=== PATIENT | male | born 1940 | race Two or more races ===

== ENCOUNTER 2022-06-02 02:38 | Inpatient (IN) | payer OTHER ==
[~2022-06-02] VITALS: Ht 170.2 cm; Wt 80.2 kg
[2022-06-02 03:16] LABS: BASOPHILS % (AUTO) 0.5 % (0.0-5.0); EOSINOPHILS % (AUTO) 1.2 % (0.0-8.0); HEMATOCRIT 39.2 % (42-54); LYMPHOCYTES % (AUTO) 6.4 % (21.0-51.0); MEAN CORPUSCULAR HEMOGLOBIN 31.1 pg (27.0-33.0); MEAN CORPUSCULAR HGB CONC 34.9 g/dL (32.0-36.0); MEAN CORPUSCULAR VOLUME 88.9 fL (79-99); MONOCYTES % (AUTO) 2.9 % (3.0-13.0); NEUTROPHILS % (AUTO) 88.5 % (40.0-77.0); PLATELET COUNT (AUTO) 309 K/uL (130-400); RED BLOOD CELL COUNT(AUTO) 4.41 MIL/uL (4.50-6.20); RED CELL DISTRIBUTION WIDTH 12.2 % (11.0-15.5); WHITE BLOOD COUNT (AUTO) 18.3 K/uL (4.8-10.8)
[2022-06-02 03:17] LABS: APPEARANCE,URINE CLEAR (CLEAR); BILIRUBIN,URINE NEGATIVE (NEGATIVE); COLOR,URINE YELLOW (YELLOW); GLUCOSE, URINE (UA) >=1000 mg/dL (NEGATIVE); KETONES,URINE 5 mg/dL (NEGATIVE); LEUKOCYTE ESTERASE ,URINE NEGATIVE (NEGATIVE); NITRATE,URINE NEGATIVE (NEGATIVE); OCCULT BLOOD,URINE NEGATIVE (NEGATIVE); PH,URINE 7.5 (5.0-8.0); PROTEIN,URINE NEGATIVE (NEGATIVE); UROBILINOGEN,URINE 0.2 mg/dL (0.2-1.0)
[2022-06-02 03:23] LABS: BACTERIA,URINE None Seen /HPF (None Seen); MUCUS,URINE Few LPF (None Seen); RBC,URINE None Seen /HPF (0-1); SQUAMOUS EPITHELIAL CELL,UR Rare /HPF (0-2); WBC,URINE None Seen /HPF (0-1)
[2022-06-02 03:24] LABS: CREATININE 1.1 mg/dL (0.5-1.5); POTASSIUM 3.5 mmol/L (3.5-5.1)
[2022-06-02 03:31] LABS: ALBUMIN 4.7 g/dL (3.5-5.0); TOTAL PROTEIN, SERUM 9.4 g/dL (6.0-8.3)
[2022-06-02] MEDS ORDERED: 0.9%NACL 1000ML 1,000 ML IV ONE (04:00)
[2022-06-02] MEDS ORDERED: KETOROLAC 15MG/ML VIAL (15MG/ML) IV ONE (04:00)
[2022-06-02] MEDS ORDERED: ONDANSETRON 4MG INJ IVP ONE (04:00)
[2022-06-02] MEDS ORDERED: IOHEXOL 350 MG/ML 100ML INFUS..BTL IV ONE (05:34)
[2022-06-02] MEDS ORDERED: ZOSYN 3.375GM +NS 50ML IV SCH (06:30)
[2022-06-02] MEDS ORDERED: MORPHINE 4 MG SYG IVP PRN (07:00)
[2022-06-02] MEDS ORDERED: MORPHINE 2 MG SYG IVP PRN (07:00)
[2022-06-02] MEDS ORDERED: ACETAMINOPHEN 650 MG SUPPOSITORY RC PRN ×2 (07:00)
[2022-06-02] MEDS ORDERED: ONDANSETRON 4MG INJ IVP PRN (07:00)
[2022-06-02] MEDS: ZOSYN 3.375GM +NS 50ML IV SCH ×3 (07:09→21:34)
[2022-06-02] MEDS ORDERED: GLUCAGON 1MG KIT 1 MG ML IM PRN (08:00)
[2022-06-02] MEDS ORDERED: DEXTROSE 50%-WATER 50 ML DISP.SYRIN IV PRN (08:00)
[2022-06-02 08:37] LABS: HEMOGLOBIN A1C 7.3 % (4.0-6.0)
[2022-06-02 09:40] VITALS: BP 145/70
[2022-06-02] MEDS ORDERED: METF-446 PO (11:24)
[2022-06-02] MEDS ORDERED: AMLO-258 PO (11:24)
[2022-06-02] MEDS: INSULIN HUMULIN R 100 UNIT/ML 3ML SQ SCH ×3 (11:30→21:35)
[2022-06-02 12:00] VITALS: BP 124/64
[2022-06-02 16:00] VITALS: BP 140/73
[2022-06-02] MEDS ORDERED: MAGNESIUM CITRATE 296 ML SOLUTION PO SCH (19:00)
[2022-06-02 20:00] VITALS: BP 132/56
[2022-06-03] VITALS (10 sets, daily range): BP systolic 112–154; BP diastolic 53–68
[2022-06-03] MEDS: ZOSYN 3.375GM +NS 50ML IV SCH ×3 (05:21→23:00)
[2022-06-03 05:34] LABS: BASOPHILS % (AUTO) 0.3 % (0.0-5.0); HEMATOCRIT 35.1 % (42-54); LYMPHOCYTES % (AUTO) 4.7 % (21.0-51.0); MEAN CORPUSCULAR HEMOGLOBIN 30.8 pg (27.0-33.0); MEAN CORPUSCULAR HGB CONC 34.5 g/dL (32.0-36.0); MEAN CORPUSCULAR VOLUME 89.3 fL (79-99); MONOCYTES % (AUTO) 5.9 % (3.0-13.0); NEUTROPHILS % (AUTO) 88.4 % (40.0-77.0); PLATELET COUNT (AUTO) 238 K/uL (130-400); RED BLOOD CELL COUNT(AUTO) 3.93 MIL/uL (4.50-6.20); RED CELL DISTRIBUTION WIDTH 12.4 % (11.0-15.5); WHITE BLOOD COUNT (AUTO) 23.6 K/uL (4.8-10.8)
[2022-06-03] MEDS: INSULIN HUMULIN R 100 UNIT/ML 3ML SQ SCH ×3 (05:40→21:00)
[2022-06-03 05:43] LABS: CREATININE 1.3 mg/dL (0.5-1.5); POTASSIUM 3.3 mmol/L (3.5-5.1)
[2022-06-03 05:44] LABS: INR 1.17 (0.85-1.15); PROTHROMBIN TIME 12.6 SEC (9.6-11.6)
[2022-06-03 05:45] LABS: PARTIAL THROMBOPLASTIN TIME 31.9 SEC (26.3-35.5)
[2022-06-03] MEDS ORDERED: POTASSIUM CHLORIDE 20MEQ/100ML 100 ML IV ONE (07:39)
[2022-06-03] MEDS ORDERED: LIDOCAINE HCL-MPF 1% 2ML VIAL ONE (07:40)
[2022-06-03] MEDS ORDERED: LIDOCAINE HCL-MPF 1% 2ML VIAL IV PRN (08:00)
[2022-06-03] MEDS ORDERED: KCL 20 MEQ ERTAB PO PRN (08:00)
[2022-06-03] MEDS ORDERED: POTASSIUM CHLORIDE 10% ELIXIR 20 MEQ/15 ML UDCUP PO PRN (08:00)
[2022-06-03] MEDS ORDERED: AMLODIPINE 5 MG TAB PO SCH (08:00)
[2022-06-03] MEDS ORDERED: POTASSIUM CHLORIDE 20MEQ/100ML 100 ML IV PRN (08:00)
[2022-06-03] MEDS: METRONIDAZOLE 500MG/100ML BAG 100 ML IVPB SCH ×2 (15:20→22:00)
[2022-06-03] MEDS ORDERED: MIDAZOLAM HCL 1 MG/ML 2ML VIAL ONE (21:16)
[2022-06-03] MEDS ORDERED: FENTANYL CITRATE PF 50 MCG/1 ML 2ML VIAL ONE (21:16)
[2022-06-03] MEDS ORDERED: PROPOFOL 10 MG/ML 20ML VIAL IV ONE (21:16)
[2022-06-03] MEDS ORDERED: SUCCINYLCHOLINE 200MG/10ML SYR ONE (21:16)
[2022-06-03] MEDS ORDERED: ROCURONIUM 10MG/1ML SYR 10 MG/ML ML ONE ×2 (21:16→21:53)
[2022-06-03] MEDS ORDERED: KETOROLAC 30MG VIAL (30MG/ML) ONE (21:30)
[2022-06-03] MEDS ORDERED: HYDROMORPHONE 1 MG INJ ONE (21:42)
[2022-06-03] MEDS ORDERED: BUPIVACAINE/EPI/PF 0.25% 30ML VIAL IJ ONE (22:18)
[2022-06-03] MEDS ORDERED: LIDOCAINE HCL 1% 20 ML VIAL ONE (22:18)
[2022-06-03] MEDS ORDERED: GLYCOPYRROLATE 1 MG/5 ML SYRINGE ONE (23:28)
[2022-06-03] MEDS ORDERED: NEOSTIGMINE 5MG/5ML SYR IV ONE (23:28)
[2022-06-04] VITALS (24 sets, daily range): BP systolic 103–154; BP diastolic 42–78
[2022-06-04] MEDS ORDERED: IPRATROPIUM/ALBUTEROL SULFATE 3 ML SOLUTION IH ONE (00:30)
[2022-06-04] MEDS: 0.9%NACL 1000ML 1,000 ML IV SCH ×3 (01:48→21:15)
[2022-06-04] MEDS ORDERED: HYDROMORPHONE 1 MG INJ IVP PRN ×2 (02:00)
[2022-06-04] MEDS ORDERED: OXYCODONE/ACETAMIN 5/325MG TAB PO PRN ×2 (02:00)
[2022-06-04] MEDS: METRONIDAZOLE 500MG/100ML BAG 100 ML IVPB SCH ×3 (05:05→19:42)
[2022-06-04 05:24] LABS: BASOPHILS % (AUTO) 0.2 % (0.0-5.0); EOSINOPHILS % (AUTO) 9.7 % (0.0-8.0); LYMPHOCYTES % (AUTO) 1.9 % (21.0-51.0); MEAN CORPUSCULAR HEMOGLOBIN 30.8 pg (27.0-33.0); MEAN CORPUSCULAR HGB CONC 34.2 g/dL (32.0-36.0); MEAN CORPUSCULAR VOLUME 89.9 fL (79-99); MONOCYTES % (AUTO) 2.6 % (3.0-13.0); PLATELET COUNT (AUTO) 225 K/uL (130-400); RED BLOOD CELL COUNT(AUTO) 3.67 MIL/uL (4.50-6.20); RED CELL DISTRIBUTION WIDTH 12.9 % (11.0-15.5); WHITE BLOOD COUNT (AUTO) 18.1 K/uL (4.8-10.8)
[2022-06-04 05:42] LABS: ALANINE AMINOTRANSFERASE 25 U/L (12-78); ALBUMIN 2.6 g/dL (3.5-5.0); AMYLASE 22 U/L (25-115); ASPARTATE AMINOTRANSFERASE 30 U/L (10-37); CARBON DIOXIDE 25 mmol/L (21-32); CHLORIDE 98 mmol/L (101-111); CREATININE 1.4 mg/dL (0.5-1.5); GLOMERULAR FILTR. RATE CALC 52 mL/min (>60); GLUCOSE,RANDOM 279 mg/dL (70-105); SODIUM SERUM 133 mmol/L (136-145); TOTAL PROTEIN, SERUM 6.7 g/dL (6.0-8.3); UREA NITROGEN, BLOOD 21 mg/dL (7-18)
[2022-06-04 05:45] LABS: LIPASE < 50 U/L (114-286)
[2022-06-04] MEDS ORDERED: MAGNESIUM OXIDE 400 MG TABLET PO SCH (06:00)
[2022-06-04] MEDS: INSULIN HUMULIN R 100 UNIT/ML 3ML SQ SCH ×4 (06:10→20:12)
[2022-06-04] MEDS: ZOSYN 3.375GM +NS 50ML IV SCH ×3 (08:38→22:45)
[2022-06-05] VITALS (7 sets, daily range): BP systolic 116–142; BP diastolic 56–71
[2022-06-05] MEDS: ZOSYN 3.375GM +NS 50ML IV SCH ×3 (05:20→22:12)
[2022-06-05] MEDS: METRONIDAZOLE 500MG/100ML BAG 100 ML IVPB SCH (05:20)
[2022-06-05] MEDS: INSULIN GLARGINE 100 UNITS/ML 10 ML VIAL SQ SCH ×2 (05:25→21:57)
[2022-06-05] MEDS: INSULIN HUMULIN R 100 UNIT/ML 3ML SQ SCH ×4 (05:25→21:56)
[2022-06-05 06:11] LABS: HEMATOCRIT 30.9 % (42-54); MEAN CORPUSCULAR HEMOGLOBIN 30.9 pg (27.0-33.0); MEAN CORPUSCULAR VOLUME 90.9 fL (79-99); RED BLOOD CELL COUNT(AUTO) 3.4 MIL/uL (4.50-6.20); RED CELL DISTRIBUTION WIDTH 12.7 % (11.0-15.5); WHITE BLOOD COUNT (AUTO) 13.7 K/uL (4.8-10.8)
[2022-06-05 06:23] LABS: CREATININE 1.2 mg/dL (0.5-1.5); POTASSIUM 4.3 mmol/L (3.5-5.1)
[2022-06-05] MEDS ORDERED: DILTIAZEM 125 MG/25 ML INJ 125 MG in 0.9%NACL 100ML 100 ML IV PRN (08:30)
[2022-06-05] MEDS ORDERED: DILTIAZEM 25MG INJ IVP PRN (08:30)
[2022-06-05] MEDS: 0.9%NACL 1000ML 1,000 ML IV SCH ×2 (10:32→16:47)
[2022-06-05] MEDS: ENOXAPARIN SODIUM 80 MG/0.8 ML SQ SCH (10:34)
[2022-06-05] MEDS ORDERED: FUROSEMIDE 40MG VIAL IV ONE (13:00)
[2022-06-05] MEDS: BENZONATATE 100 MG CAPSULE PO PRN (14:16)
[2022-06-05] MEDS: IPRATROPIUM 0.5 MG/2.5 ML INH IH SCH ×2 (18:49→23:01)
[2022-06-05] MEDS ORDERED: LACTULOSE 20 GM/30 ML UDCUP PO PRN (21:00)
[2022-06-05] MEDS ORDERED: GUAIFENESIN-DM 200/20 MG 10 ML PO PRN (21:00)
[2022-06-05] MEDS ORDERED: DOCUSATE SODIUM 100 MG CAP PO PRN (21:00)
[2022-06-05] MEDS ORDERED: DIPHENHYDRAMINE HCL 25 MG CAPSULE PO PRN (22:00)
[2022-06-06] MEDS: BENZONATATE 100 MG CAPSULE PO PRN
[2022-06-06 00:12] VITALS: BP 148/69
[2022-06-06] MEDS: 0.9%NACL 1000ML 1,000 ML IV SCH (04:00)
[2022-06-06 04:02] VITALS: BP 145/70
[2022-06-06 04:20] LABS: HEMATOCRIT 31.3 % (42-54); MEAN CORPUSCULAR HEMOGLOBIN 30.7 pg (27.0-33.0); MEAN CORPUSCULAR HGB CONC 34.2 g/dL (32.0-36.0); MEAN CORPUSCULAR VOLUME 89.9 fL (79-99); RED BLOOD CELL COUNT(AUTO) 3.48 MIL/uL (4.50-6.20); RED CELL DISTRIBUTION WIDTH 12.6 % (11.0-15.5); WHITE BLOOD COUNT (AUTO) 10.2 K/uL (4.8-10.8)
[2022-06-06 04:44] LABS: ALBUMIN 2.5 g/dL (3.5-5.0); CREATININE 1.2 mg/dL (0.5-1.5); POTASSIUM 3.6 mmol/L (3.5-5.1); TOTAL PROTEIN, SERUM 7.1 g/dL (6.0-8.3)
[2022-06-06] MEDS: IPRATROPIUM 0.5 MG/2.5 ML INH IH SCH (06:17)
[2022-06-06] MEDS: ZOSYN 3.375GM +NS 50ML IV SCH ×2 (06:37→15:00)
[2022-06-06] MEDS: INSULIN HUMULIN R 100 UNIT/ML 3ML SQ SCH ×2 (06:39→11:00)
[2022-06-06] MEDS: INSULIN GLARGINE 100 UNITS/ML 10 ML VIAL SQ SCH (06:39)
[2022-06-06 07:10] VITALS: BP 144/72
[2022-06-06] MEDS: ENOXAPARIN SODIUM 80 MG/0.8 ML SQ SCH (08:30)
[2022-06-06] MEDS ORDERED: FUROSEMIDE 40MG VIAL IV ONE (10:00)
[2022-06-06 11:30] VITALS: BP 134/74
[2022-06-06 15:00] VITALS: BP 124/50
== END 2022-06-06 16:48 | disposition home or self-care (01) | DRG 417 ==
LOC: EDH 02:38 → INTOOBSV 06:53 → EDHIP 06:53 → OBSVTOIN 06:53 → 3AH 08:51 → 2AH 06-05 10:04
PROVIDERS: ADMIT Hospitalist; ATTEND Hospitalist
PROC: 8E0W4CZ Robotic Assisted Procedure of Trunk Region, Percutaneous Endoscopic Approach (ICD-10-PCS; 2022-06-03)
PROC: 0FT44ZZ Resection of Gallbladder, Percutaneous Endoscopic Approach (ICD-10-PCS; principal; 2022-06-03 21:14)
DX: K80.00 Calculus of gallbladder with acute cholecystitis without obstruction (principal); I50.31 Acute diastolic (congestive) heart failure; J96.01 Acute respiratory failure with hypoxia; E87.1 Hypo-osmolality and hyponatremia; Z20.822 Contact with and (suspected) exposure to COVID-19; E11.65 Type 2 diabetes mellitus with hyperglycemia; J84.10 Pulmonary fibrosis, unspecified; I11.0 Hypertensive heart disease with heart failure; E78.00 Pure hypercholesterolemia, unspecified; I48.0 Paroxysmal atrial fibrillation; K59.00 Constipation, unspecified; Z90.49 Acquired absence of other specified parts of digestive tract
CPT/HCPCS: 36415; 71045; 71250; 71260; 74177; 76705; 80048; 80053; 81001; 82150; 82948; 83036; 83605; 83690; 83735; 84484; 85025; 85027; 85610; 85730; 87040; 87635; 93005; 93306; 93356; 94640; 94664; G0378; J0330; J1170; J1650; J1815; J1885; J1940; J2250; J2405; J2543; J2704; J2710; J3010; J3480; J3490; J7030; Q0163; Q9967